=== PATIENT | male | born 1995 | race Caucasian/White ===

== ENCOUNTER 2017-02-10 22:09 | Emergency (ER) | payer SELFPAY ==
[~2017-02-10 22:09] MED LIST: ADDERALL XR 2020 MG; ALPRAZOLAM0.25 M2 PO; ALPRAZOLAM0.5 M2 PO; ALPRAZOLAM0.5 MG PO; ATARAX25 MG PO; ATIVAN0.5 MG PO; CELEXA10 MG PO; CLONAZEPAM0.5 M2 PO; KLONOPIN0.5 M1 PO; LORAZEPAM1 M1 PO; NO HOME MEDICATION XX; NO HOME MEDS; NO MEDICATIONS; PROVENTIL HFA6.7 G1 IH; RISPERDAL1 M2 PO; SERTRALINE HCL50 M4 PO; UNISOM SLEEP AI25 MG PO; XANAX0.25 MG PO; XANAX0.5 M1 PO; XANAX0.5 MG PO; ZOLOFT50 M1 PO
[2017-02-10] MEDS ORDERED: SERTRALINE HCL100 M5 PO (22:30)
[2017-02-10] MEDS ORDERED: KLONOPIN0.5 M1 PO (22:52)
== END 2017-02-10 23:03 ==
LOC: EDMED 22:09
DX: F41.9 Anxiety disorder, unspecified (principal); F17.200 Nicotine dependence, unspecified, uncomplicated; Z79.899 Other long term (current) drug therapy

== ENCOUNTER 2017-02-28 18:18 | Emergency (ER) | payer SELFPAY ==
[~2017-02-28 18:18] MED LIST changes: +SERTRALINE HCL100 M5 PO
== END 2017-02-28 20:09 ==
LOC: EDMED 18:18
DX: F41.9 Anxiety disorder, unspecified (principal); Z79.899 Other long term (current) drug therapy